=== PATIENT | male | born 1975 | race Two or more races ===

== ENCOUNTER 2024-03-14 19:58 | Emergency (ER) | payer OTHER ==
[~2024-03-14] VITALS: Ht 203.2 cm; Wt 113.4 kg
[2024-03-14] MEDS ORDERED: HBP (20:07)
[2024-03-14 21:28] LABS: HEMATOCRIT 43.9 % (39.0-48.0); HEMOGLOBIN 14.9 g/dL (13-16.00); MEAN CELL VOLUME 77.2 fL (80.0-100.00); MEAN CORPUSCULAR HEMOGLOBIN 26.1 pg (27.00-32.0); MEAN CORPUSCULAR HGB CONC 33.9 g/dl (32.0-36.0); PLATELET COUNT 235 K/uL (150-450); RED BLOOD COUNT 5.69 M/uL (4.00-6.00)
[2024-03-14 22:03] LABS: CREATININE SERUM 1.56 mg/dL (0.70-1.30); GFR 47.15; POTASSIUM 3.23 mEq/L (3.5-5.1)
[2024-03-14 22:10] LABS: URINE APPEARANCE Clear; URINE BILIRRUBIN Negative (NEGATIVE); URINE BLOOD Negative; URINE COLOR Yellow; URINE GLUCOSE Negative (NEGATIVE); URINE KETONE Negative (NEGATIVE); URINE LEUKOCYTE Negative; URINE NITRATE Negative; URINE PROTEIN Trace (NEGATIVE); URINE UROBILINOGEN 0.2 E.U./dl
[2024-03-14 22:22] LABS: URINE CAST 0.15 uL (0.0-1.40); URINE EPITHELIAL CELLS 0.6 uL (0.0-38.8); URINE RBC 1.9 uL (0.0-20.8); URINE WBC 1.5 uL (0.0-23.2)
[2024-03-15] MEDS ORDERED: DICLOFENAC SODI75 MG PO (01:13)
== END 2024-03-15 01:31 | disposition home or self-care (01) ==
LOC: ER 19:59
PROVIDERS: General Practice
DX: M54.9 Dorsalgia, unspecified (principal); Z88.0 Allergy status to penicillin